=== PATIENT | female | born 1960 | race Caucasian/White ===

== ENCOUNTER 2020-12-26 21:20 | Emergency (ER) | payer OTHER, MEDICAID ==
[~2020-12-26] VITALS: Ht 162.6 cm; Wt 68.0 kg
[2020-12-26] MEDS ORDERED: GABAPENTIN800 M1 PO (21:36)
[2020-12-26] MEDS ORDERED: TIZANIDINE HCL2 M1 PO (21:37)
[2020-12-26] MEDS ORDERED: HYDROXYZINE HCL25 M2 PO (21:38)
[2020-12-26] MEDS ORDERED: LAMOTRIGINE250 MG PO (21:38)
[2020-12-26] MEDS ORDERED: TACROLIMUS1 MG PO (21:39)
[2020-12-26] MEDS ORDERED: VITAMIN D250 MCG PO (21:39)
[2020-12-26] MEDS ORDERED: TOPAMAX100 MG PO (21:40)
[2020-12-26] MEDS ORDERED: BUPROPION HCL100 MG PO (21:40)
[2020-12-26] MEDS ORDERED: MUPIROCIN1 GM TOP (22:27)
[2020-12-26] MEDS ORDERED: BACTRIM DS TAB1 EACH PO (22:27)
[2020-12-26 22:37] VITALS: BP 167/87
== END 2020-12-26 22:38 | disposition home or self-care (01) ==
LOC: M.ERS 21:20
DX: L08.9 Local infection of the skin and subcutaneous tissue, unspecified (principal); L53.9 Erythematous condition, unspecified; Z90.711 Acquired absence of uterus with remaining cervical stump; Z90.49 Acquired absence of other specified parts of digestive tract; Z79.899 Other long term (current) drug therapy; Z88.6 Allergy status to analgesic agent; Z88.8 Allergy status to other drugs, medicaments and biological substances